=== PATIENT | male | born 1940 | race African-American/Black ===

== ENCOUNTER 2022-01-29 10:12 | Outpatient (CLI) | payer MEDICARE, BC | END 2022-01-29 10:13 | disposition home or self-care (01) | LOC: BICULT 10:12 → EDBD 10:12 → BICULT 10:13 | PROVIDERS: ATTEND Urology | DX: N40.1 Benign prostatic hyperplasia with lower urinary tract symptoms (principal); N20.0 Calculus of kidney; N28.1 Cyst of kidney, acquired | CPT/HCPCS: 76770 ==